=== PATIENT | male | born 1980 | race Caucasian/White ===

== ENCOUNTER 2017-02-26 17:58 | Emergency (ER) | payer SELFPAY ==
[~2017-02-26] VITALS: Ht 172.7 cm; Wt 75.0 kg
[2017-02-26 19:00] VITALS: BP 144/93
== END 2017-02-26 19:37 | disposition home or self-care (01) ==
LOC: EMS 18:02
DX: K21.9 Gastro-esophageal reflux disease without esophagitis (principal); R06.02 Shortness of breath; I10 Essential (primary) hypertension
CPT/HCPCS: 93005; 99283